=== PATIENT | female | born 1995 | race Caucasian/White ===

== ENCOUNTER 2020-12-12 18:17 | Outpatient (CLI) | payer OTHER ==
--- NOTE | 2020-12-12 14:41 | XRAY Report ---
PROCEDURE: Cervical Spine 2 View INDICATIONS: STRAIN OF NUSCLE,FASCIA AND TENDON AT NECK LEVEL TECHNIQUE: 3 view(s) of the cervical spine were acquired. COMPARISON: None. FINDINGS: Bones: Normal cervical spine vertebral body height and alignment. No suspicious lytic or blastic osse ous lesion. Intervertebral disc spaces are maintained without degenerative endplate changes. No degen erative changes of the facets or uncovertebral joints identified. Open-mouth odontoid view demonstrat es normal atlantoaxial relationship. Soft tissues: No prevertebral soft tissue swelling. IMPRESSION: Normal cervical spine radiographs. Reviewed by: Neville Bell MD on 12/12/2020 2:40 PM PST Approved by: Neville Bell MD on 12/12/2020 2:40 PM PST Station ID: [id number]
== END 2020-12-12 18:18 | disposition home or self-care (01) ==
LOC: DI.S 18:17
PROVIDERS: ATTEND Emergency Medicine
DX: S16.1XXA Strain of muscle, fascia and tendon at neck level, initial encounter (principal)